=== PATIENT | male | born 1955 | race Caucasian/White ===

== ENCOUNTER 2020-04-11 09:45 | Outpatient (CLI) | payer OTHER, MEDICARE, SELFPAY ==
[2020-04-11 10:08] LABS: Hemoglobin A1C 11.2 % (<5.7)
[2020-04-11 10:43] LABS: Anion Gap 13.2 mmol/L (7-16); Blood Urea Nitrogen 17 mg/dL (7-18); Calcium 9.1 mg/dL (8.5-10.1); Carbon Dioxide 28 mmol/L (21-32); Chloride 96 mmol/L (98-108); Estimated Glomerular Filt Rate > 60; Glucose 261 mg/dL (70-99); Osmolality Calculated 286 mOsm/kg (285-295); Potassium 4.2 mmol/L (3.5-5.1); Sodium 133 mmol/L (136-145)
== END 2020-04-11 09:46 | disposition home or self-care (01) ==
PROVIDERS: PCP Internal Medicine; Visit Provider Internal Medicine
DX: E11.65 Type 2 diabetes mellitus with hyperglycemia (principal)
CPT/HCPCS: 36415; 80048; 83036

== ENCOUNTER 2020-07-18 08:15 | Outpatient (CLI) | payer OTHER, MEDICARE, SELFPAY ==
[2020-07-18 08:58] LABS: Add Urine Microscopic? YES; Appearance Urine Clear (Clear); Bilirubin Urine Negative (Negative); Blood Urine Negative (Negative); Color Urine Yellow (Yellow); Glucose Urine UA 3+ (Negative); Ketones Urine Trace (Negative); Leukocyte Esterase Ur Negative (Negative); Nitrate Urine Negative (Negative); Protein Urine Negative (Negative); Urobilinogen Urine 0.2 mg/dL (0.2-1.0); pH Urine 5.5 (5.0-8.0)
[2020-07-18 09:20] LABS: Hemoglobin A1C 11.6 % (<5.7)
[2020-07-18 09:27] LABS: Bacteria Urine None seen /hpf; RBC Urine 0-2 /hpf (0-2); Squamous Epithelial Cell Urine None seen /hpf (Few); WBC Urine 0-3 /hpf (0-3)
[2020-07-18 09:44] LABS: Creatinine Urine 47.59 mg/dL (40-278); MALB Creatinine Ratio 69.5 mg/g (0-30); Microalbumin Urine Random 33.1 mg/L
[2020-07-18 09:47] LABS: Alanine Aminotransferase 23 U/L (16-63); Albumin Level 3.9 g/dL (3.4-5.0); Alkaline Phosphatase 98 U/L (46-116); Anion Gap 10 mmol/L (8-16); Aspartate Amino Transferase 18 U/L (15-37); Bilirubin,Total 0.5 mg/dL (0.00-1.00); Blood Urea Nitrogen 16 mg/dL (7-18); Calcium 8.9 mg/dL (8.5-10.1); Carbon Dioxide 27 mmol/L (21-32); Chloride 98 mmol/L (98-108); Cholesterol 274 mg/dL (0-200); Creatine Kinase 33 U/L (39-308); Estimated Glomerular Filt Rate > 60; Glucose 394 mg/dL (70-99); HDL Direct 29 mg/dL (40-60); Osmolality Calculated 297 mOsm/kg (285-295); Potassium 4.5 mmol/L (3.5-5.1); Prostate Specific Antigen 1.2 ng/mL (< OR = 4.0); Sodium 135 mmol/L (136-145); Total Protein 6.9 g/dL (6.4-8.2)
[2020-07-18 09:48] LABS: LDL Cholesterol Calculated 98 mg/dL (<130)
[2020-07-18 09:50] LABS: Triglycerides 736 mg/dL (0-150)
[2020-07-18 10:05] LABS: LDL Cholesterol Direct 128 mg/dL (0-130)
== END 2020-07-18 08:16 | disposition home or self-care (01) ==
LOC: CHSLAB 08:21
PROVIDERS: PCP Internal Medicine; Visit Provider Internal Medicine
DX: E11.65 Type 2 diabetes mellitus with hyperglycemia (principal); I10 Essential (primary) hypertension; E78.2 Mixed hyperlipidemia; R97.20 Elevated prostate specific antigen [PSA]
CPT/HCPCS: 36415; 80053; 80061; 81001; 82043; 82550; 83036; 83721; 84153

== ENCOUNTER 2021-07-21 08:13 | Outpatient (CLI) | payer OTHER, MEDICARE, SELFPAY ==
[2021-07-21 08:39] LABS: Hemoglobin A1C 7.7 % (<5.7)
[2021-07-21 10:02] LABS: Alanine Aminotransferase 42 U/L (16-63); Albumin Level 4.3 g/dL (3.4-5.0); Alkaline Phosphatase 72 U/L (46-116); Anion Gap 11 mmol/L (8-16); Aspartate Amino Transferase 22 U/L (15-37); Bilirubin,Total 0.5 mg/dL (0.00-1.00); Blood Urea Nitrogen 17 mg/dL (7-18); Calcium 9.2 mg/dL (8.5-10.1); Carbon Dioxide 28 mmol/L (21-32); Chloride 101 mmol/L (98-108); Cholesterol 137 mg/dL (0-200); Estimated Glomerular Filt Rate > 60; Glucose 165 mg/dL (70-99); HDL Direct 37 mg/dL (40-60); LDL Cholesterol Calculated 68 mg/dL (<130); Osmolality Calculated 295 mOsm/kg (285-295); Potassium 4.6 mmol/L (3.5-5.1); Prostate Specific Antigen 2.1 ng/mL (< OR = 4.0); Sodium 140 mmol/L (136-145); Total Protein 7.1 g/dL (6.4-8.2); Triglycerides 158 mg/dL (0-150)
== END 2021-07-21 08:14 | disposition home or self-care (01) ==
PROVIDERS: PCP Internal Medicine; Visit Provider Internal Medicine
DX: E11.65 Type 2 diabetes mellitus with hyperglycemia (principal); I10 Essential (primary) hypertension; E78.2 Mixed hyperlipidemia; R97.20 Elevated prostate specific antigen [PSA]
CPT/HCPCS: 36415; 80053; 80061; 83036; 84153

== ENCOUNTER 2021-09-22 09:27 | Emergency (ER) | payer OTHER, MEDICARE, SELFPAY ==
--- NOTE | ~2021-09-22 | XR_ITS ---
EXAMINATION: XR chest 1V portable DATE: 09/22/2021 10:38 INDICATION: Cough and congestion. TECHNIQUE: A single frontal view of the chest was obtained. COMPARISON: Chest single view 10/15/2017, chest CT 10/15/2017 FINDINGS: The chest demonstrates clear lungs without pneumonia, pleural effusion, or pneumothorax. Th e heart size is normal. There is an old healed left rib fracture. IMPRESSION: 1. No acute cardiopulmonary disease. Reviewed, dictated and finalized at location A. AL VAULT MAKER
[2021-09-22 09:35] VITALS: BP 153/91; PULSE 90; RESP 20; TEMP 37; O2SAT 96
--- NOTE | 2021-09-22 10:02 | ED.URI ---
HPI - URI/Sore Throat General Chief Complaint: Upper Respiratory Infection Stated Complaint: SICK SENT BY DRS OFFICE Source: patient, family and RN notes reviewed Mode of arrival: ambulatory Limitations: no limitations History of Present Illness MD elicited complaint: cough and nasal congestion Onset (ago): week(s) (2) Consistency: intermittent Severity: moderate Description of mucous: yellow and green Able to tolerate fluids by mouth: Yes Associated symptoms: myalgias, nasal congestion and cough Treatments prior to arrival: none Review of Systems Review of Systems: All systems reviewed & are unremarkable except as noted in HPI and below PMFSH Past Medical History Medical History (Updated 09/22/21 @ 12:01 by Robe Lynch MD) BPH (benign prostatic hyperplasia) Hyperlipidemia Hypertension Type 2 diabetes mellitus Surgical History Surgical History (Updated 09/22/21 @ 11:13 by Robe Lynch MD) Femur fracture, left Fx tibia/fibula shaft-op H/O knee surgery Hx of tonsillectomy Left forearm fracture Social History Social History (Updated 09/22/21 @ 11:15 by Robe Lynch MD) Smoking status: Former smoker Alcohol use details: no current alcohol use Substance use: current Substance use type: marijuana Exam Const: General: healthy appearing, no acute distress and alert Nutritional Appearance: well nourished and obese centrally obese Orientation/consciousness: patient oriented x3 HENMT: Head: normal to inspection Ears: external ears normal Eyes: Conjunctivae: conjunctivae normal Pupils: Equal, round and reactive pupils present EOM: EOMs intact bilaterally Neck: Neck: normal visual inspection Resp: Effort & Inspection: normal respiratory effort Auscultation: rhonchi left upper Cardio: Rate: regular rate Rhythm: regular rhythm GI: GI Palp: Yes Soft to palpation, No Tenderness to palpation present (GI), No Guarding due to palpation present (GI) and No Rebound tenderness present Auscultation: normal bowel sounds Back/Spine/Pelvis: Cervical Spine: cervical ROM normal Thoracic/Lumbar Spine: thoraco-lumbar ROM normal Skin: General skin exam: normal color Rashes: no rashes Neuro: General: patient oriented x3, moves all extremities, no meningeal signs and no focal motor deficits Speech: normal speech Gait exam (Neuro): Normal gait present Extrem: General: normal to inspection and no clubbing, cyanosis or edema Psych: Appearance: grossly normal and well kempt Mental Status: mental status grossly normal Affect: normal affect Attitude: cooperative Thought content: Yes Normal thought content present Course Vital Signs Vital signs: Vital Signs Temperature 37.0 C 09/22/21 09:35 Pulse Rate 90 09/22/21 09:35 Respiratory Rate 20 09/22/21 09:35 Blood Pressure 153/91 H 09/22/21 09:35 Pulse Oximetry 96 09/22/21 09:35 Temperature 36.9 C 09/22/21 12:09 Pulse Rate 67 09/22/21 12:09 Respiratory Rate 20 09/22/21 12:09 Blood Pressure 152/74 H 09/22/21 12:09 Pulse Oximetry 97 09/22/21 12:09 MDM - URI/Sore Throat Lab Data Attestation: I reviewed the patient's lab results. Result diagrams: 09/22/21 10:29 09/22/21 10:29 Labs: Lab Results 09/22/21 09/22/21 09/22/21 Range/Units 10:00 10:00 10:29 WBC 13.3 H (4.8-10.8) K/mm3 RBC 5.39 (4.70-6.10) M/mm3 Hgb 14.4 (12.4-15.3) g/dL Hct 44.7 (37.0-46.0) % MCV 82.9 (78.0-102.0) fL MCH 26.7 L (27.0-31.0) pg MCHC 32.2 (32.0-36.0) g/dL RDW 14.9 H (11.6-14.4) % Plt Count 296 (150-420) K/mm3 MPV 9.3 (8.7-11.0) fl Immature Gran % (Auto) 0.8 H (0.0-0.0) % Neut % (Auto) 74.0 H (50.0-70.0) % Lymph % (Auto) 15.3 L (18.0-42.0) % Sequoyah % (Auto) 5.5 (2.0-11.0) % Eos % (Auto) 3.6 (1.0-6.0) % Baso % (Auto) 0.8 (0.0-1.0) % Lymph # (Auto) 2.03 (1.10-4.50) K/mm3 Sequoyah # (Auto) 0.73 (0.10-0.90) K/mm3 Eos # (Aut
[2021-09-22 10:23] LABS: Influenza Control Valid (Valid); SARS-CoV-2 Ag Negative (Negative)
[2021-09-22 10:38] LABS: Basophils Absolute Auto 0.11 K/mm3 (0.00-0.10); Basophils Percent Auto 0.8 % (0.0-1.0); Eosinophils Absolute Auto 0.48 K/mm3 (0.02-0.50); Eosinophils Percent Auto 3.6 % (1.0-6.0); Hematocrit 44.7 % (37.0-46.0); Hemoglobin 14.4 g/dL (12.4-15.3); Immature Granulocyte Absolute 0.11 K/mm3 (0.00-0.00); Immature Granulocyte Percent A 0.8 % (0.0-0.0); Lymphocytes Absolute Auto 2.03 K/mm3 (1.10-4.50); Lymphocytes Percent Auto 15.3 % (18.0-42.0); Mean Corpuscular HGB Conc 32.2 g/dL (32.0-36.0); Mean Corpuscular Hemoglobin 26.7 pg (27.0-31.0); Mean Corpuscular Volume 82.9 fL (78.0-102.0); Mean Platelet Volume 9.3 fl (8.7-11.0); Monocytes Absolute Auto 0.73 K/mm3 (0.10-0.90); Monocytes Percent Auto 5.5 % (2.0-11.0); Neutrophils Absolute Auto 9.8 K/mm3 (1.7-7.2); Platelet Count Result 296 K/mm3 (150-420); Red Blood Count 5.39 M/mm3 (4.70-6.10); Red Cell Distribution Width 14.9 % (11.6-14.4); White Blood Count 13.3 K/mm3 (4.8-10.8)
[2021-09-22 11:05] LABS: Alanine Aminotransferase 36 U/L (16-63); Alkaline Phosphatase 75 U/L (46-116); Anion Gap 8 mmol/L (8-16); Aspartate Amino Transferase 23 U/L (15-37); Bilirubin,Total 0.3 mg/dL (0.00-1.00); Blood Urea Nitrogen 15 mg/dL (7-18); Carbon Dioxide 29 mmol/L (21-32); Chloride 97 mmol/L (98-108); Estimated CRCL calculation 81 ml/min; Estimated Glomerular Filt Rate > 60; Ferritin 134 ng/mL (26-388); Glucose 170 mg/dL (70-99); Magnesium 1.9 mg/dL (1.8-2.4); Osmolality Calculated 282 mOsm/kg (285-295); Potassium 4.5 mmol/L (3.5-5.1); Sodium 134 mmol/L (136-145); Total Protein 7.7 g/dL (6.4-8.2)
[2021-09-22 11:06] LABS: CRP < 0.2 mg/dL (0.0-0.9)
[2021-09-22 11:14] LABS: Lactic Acid Reflex 1.5 mmol/L (0.4-2.0)
[2021-09-22 12:09] VITALS: BP 152/74; PULSE 67; RESP 20; TEMP 36.9; O2SAT 97
== END 2021-09-22 12:10 | disposition home or self-care (01) ==
PROVIDERS: Emergency Provider Emergency Medicine; PCP Internal Medicine
DX: J00 Acute nasopharyngitis [common cold] (principal); Z20.822 Contact with and (suspected) exposure to COVID-19; I10 Essential (primary) hypertension; E11.9 Type 2 diabetes mellitus without complications; E78.5 Hyperlipidemia, unspecified; N40.0 Benign prostatic hyperplasia without lower urinary tract symptoms; Z87.891 Personal history of nicotine dependence
CPT/HCPCS: 36415; 71045; 80053; 82728; 83605; 83735; 84145; 85025; 86140; 87426; 87804; 99282; 99283; C9803

== ENCOUNTER 2021-10-25 07:48 | Outpatient (CLI) | payer BC, MEDICARE, SELFPAY ==
[2021-10-25 08:23] LABS: Hemoglobin A1C 6.9 % (<5.7)
[2021-10-25 09:07] LABS: Anion Gap 8 mmol/L (8-16); Blood Urea Nitrogen 20 mg/dL (7-18); Calcium 8.9 mg/dL (8.5-10.1); Carbon Dioxide 29 mmol/L (21-32); Chloride 97 mmol/L (98-108); Estimated Glomerular Filt Rate > 60; Glucose 119 mg/dL (70-99); Osmolality Calculated 281 mOsm/kg (285-295); Potassium 4.3 mmol/L (3.5-5.1); Sodium 134 mmol/L (136-145)
== END 2021-10-25 07:49 | disposition home or self-care (01) ==
LOC: CHSLAB 07:54
PROVIDERS: PCP Internal Medicine; Visit Provider Internal Medicine
DX: E11.65 Type 2 diabetes mellitus with hyperglycemia (principal)
CPT/HCPCS: 36415; 80048; 83036

== ENCOUNTER 2022-02-17 07:22 | Outpatient (CLI) | payer BC, MEDICARE, SELFPAY ==
[2022-02-17 07:50] LABS: Add Urine Microscopic? NO; Appearance Urine Clear (Clear); Bilirubin Urine Negative (Negative); Blood Urine Negative (Negative); Color Urine Yellow (Yellow); Glucose Urine UA Negative (Negative); Ketones Urine Negative (Negative); Leukocyte Esterase Ur Negative (Negative); Nitrate Urine Negative (Negative); Protein Urine Negative (Negative); Specific Grav Ur 1.015 (1.010-1.020); Urobilinogen Urine 0.2 mg/dL (0.2-1.0)
[2022-02-17 07:57] LABS: Hemoglobin A1C 6.1 % (<5.7)
[2022-02-17 07:58] LABS: Creatinine Urine 114.02 mg/dL (40-278); MALB Creatinine Ratio 15.1 mg/g (0-30); Microalbumin Urine Random 17.3 mg/L
[2022-02-17 08:10] LABS: Alanine Aminotransferase 39 U/L (16-63); Albumin Level 3.9 g/dL (3.4-5.0); Alkaline Phosphatase 74 U/L (46-116); Anion Gap 6 mmol/L (8-16); Aspartate Amino Transferase 52 U/L (15-37); Bilirubin,Total 0.4 mg/dL (0.00-1.00); Blood Urea Nitrogen 17 mg/dL (7-18); Calcium 8.9 mg/dL (8.5-10.1); Carbon Dioxide 32 mmol/L (21-32); Chloride 102 mmol/L (98-108); Cholesterol 136 mg/dL (0-200); Estimated Glomerular Filt Rate > 60; Glucose 114 mg/dL (70-99); HDL Direct 33 mg/dL (40-60); LDL Cholesterol Calculated 53 mg/dL (<130); Osmolality Calculated 292 mOsm/kg (285-295); Potassium 4.2 mmol/L (3.5-5.1); Prostate Specific Antigen 1.2 ng/mL (< OR = 4.0); Sodium 140 mmol/L (136-145); Total Protein 7.6 g/dL (6.4-8.2); Triglycerides 249 mg/dL (0-150)
== END 2022-02-17 07:23 | disposition home or self-care (01) ==
LOC: CHSLAB 07:25
PROVIDERS: PCP Internal Medicine; Visit Provider Internal Medicine
DX: E11.65 Type 2 diabetes mellitus with hyperglycemia (principal); I10 Essential (primary) hypertension; E78.2 Mixed hyperlipidemia; R97.20 Elevated prostate specific antigen [PSA]
CPT/HCPCS: 36415; 80053; 80061; 81003; 82043; 83036; 84153

== ENCOUNTER 2022-04-09 16:44 | Outpatient (CLI) | payer BC, MEDICARE, SELFPAY ==
[2022-04-09 17:08] LABS: Basophils Absolute Auto 0.07 K/mm3 (0.00-0.10); Basophils Percent Auto 0.6 % (0.0-1.0); Eosinophils Absolute Auto 0.39 K/mm3 (0.02-0.50); Eosinophils Percent Auto 3.4 % (1.0-6.0); Hemoglobin 14.5 g/dL (12.4-15.3); Immature Granulocyte Absolute 0.06 K/mm3 (0.00-0.00); Immature Granulocyte Percent A 0.5 % (0.0-0.0); Lymphocytes Absolute Auto 2.22 K/mm3 (1.10-4.50); Lymphocytes Percent Auto 19.5 % (18.0-42.0); Mean Corpuscular HGB Conc 32.2 g/dL (32.0-36.0); Mean Corpuscular Hemoglobin 26.6 pg (27.0-31.0); Mean Corpuscular Volume 82.6 fL (78.0-102.0); Mean Platelet Volume 9.6 fl (8.7-11.0); Monocytes Percent Auto 6.2 % (2.0-11.0); Neutrophils Absolute Auto 7.9 K/mm3 (1.7-7.2); Neutrophils Percent Auto 69.8 % (50.0-70.0); Platelet Count Result 259 K/mm3 (150-420); Red Blood Count 5.45 M/mm3 (4.70-6.10); Red Cell Distribution Width 15.5 % (11.6-14.4); White Blood Count 11.4 K/mm3 (4.8-10.8)
[2022-04-09 17:46] LABS: Alanine Aminotransferase 33 U/L (16-63); Albumin Level 4.3 g/dL (3.4-5.0); Alkaline Phosphatase 80 U/L (46-116); Anion Gap 8 mmol/L (8-16); Aspartate Amino Transferase 24 U/L (15-37); Bilirubin,Total 0.4 mg/dL (0.00-1.00); Blood Urea Nitrogen 16 mg/dL (7-18); Calcium 9.2 mg/dL (8.5-10.1); Carbon Dioxide 29 mmol/L (21-32); Chloride 100 mmol/L (98-108); Estimated Glomerular Filt Rate > 60; Free T4 Free Thyroxine 1.07 ng/dL (0.76-1.46); Glucose 122 mg/dL (70-99); Osmolality Calculated 286 mOsm/kg (285-295); Potassium 4.3 mmol/L (3.5-5.1); Sodium 137 mmol/L (136-145); Thyroid Stimulating Hormone 2.25 uIU/mL (0.36-3.74); Total Protein 7.4 g/dL (6.4-8.2)
== END 2022-04-09 16:45 | disposition home or self-care (01) ==
LOC: CHSLAB 16:47
PROVIDERS: PCP Internal Medicine; Visit Provider Nurse Practitioner Family
DX: E11.65 Type 2 diabetes mellitus with hyperglycemia (principal); I10 Essential (primary) hypertension; N39.0 Urinary tract infection, site not specified
CPT/HCPCS: 36415; 80053; 84439; 84443; 85025

== ENCOUNTER 2022-07-26 07:26 | Outpatient (CLI) | payer BC, MEDICARE, SELFPAY ==
[2022-07-26 07:44] LABS: Basophils Absolute Auto 0.12 K/mm3 (0.00-0.10); Eosinophils Absolute Auto 0.83 K/mm3 (0.02-0.50); Hematocrit 42.3 % (37.0-46.0); Hemoglobin 12.9 g/dL (12.4-15.3); Immature Granulocyte Absolute 0.06 K/mm3 (0.00-0.00); Immature Granulocyte Percent A 0.5 % (0.0-0.0); Lymphocytes Absolute Auto 1.84 K/mm3 (1.10-4.50); Lymphocytes Percent Auto 15.6 % (18.0-42.0); Mean Corpuscular HGB Conc 30.5 g/dL (32.0-36.0); Mean Corpuscular Hemoglobin 25.2 pg (27.0-31.0); Mean Corpuscular Volume 82.8 fL (78.0-102.0); Monocytes Absolute Auto 0.73 K/mm3 (0.10-0.90); Monocytes Percent Auto 6.2 % (2.0-11.0); Neutrophils Absolute Auto 8.2 K/mm3 (1.7-7.2); Neutrophils Percent Auto 69.7 % (50.0-70.0); Platelet Count Result 300 K/mm3 (150-420); Red Blood Count 5.11 M/mm3 (4.70-6.10); Red Cell Distribution Width 16.8 % (11.6-14.4); White Blood Count 11.8 K/mm3 (4.8-10.8)
[2022-07-26 07:46] LABS: Add Urine Microscopic? NO; Appearance Urine Clear (Clear); Bilirubin Urine Negative (Negative); Blood Urine Negative (Negative); Color Urine Yellow (Yellow); Glucose Urine UA Negative (Negative); Ketones Urine Negative (Negative); Leukocyte Esterase Ur Negative (Negative); Nitrate Urine Negative (Negative); Protein Urine Negative (Negative); Urobilinogen Urine 0.2 mg/dL (0.2-1.0)
[2022-07-26 07:53] LABS: Hemoglobin A1C 6.4 % (<5.7)
[2022-07-26 08:22] LABS: Creatinine Urine 110.36 mg/dL (40-278); MALB Creatinine Ratio 19.8 mg/g (0-30); Microalbumin Urine Random 21.9 mg/L
[2022-07-26 08:44] LABS: Alanine Aminotransferase 28 U/L (16-63); Albumin Level 3.9 g/dL (3.4-5.0); Alkaline Phosphatase 76 U/L (46-116); Anion Gap 8 mmol/L (8-16); Aspartate Amino Transferase 19 U/L (15-37); Bilirubin,Total 0.4 mg/dL (0.00-1.00); Blood Urea Nitrogen 15 mg/dL (7-18); Carbon Dioxide 29 mmol/L (21-32); Chloride 101 mmol/L (98-108); Cholesterol 125 mg/dL (0-200); Creatine Kinase 50 U/L (39-308); Estimated Glomerular Filt Rate > 60; Glucose 172 mg/dL (70-99); HDL Direct 40 mg/dL (40-60); LDL Cholesterol Calculated 50 mg/dL (<130); Osmolality Calculated 290 mOsm/kg (285-295); Prostate Specific Antigen 1.6 ng/mL (< OR = 4.0); Sodium 138 mmol/L (136-145); Total Protein 7.3 g/dL (6.4-8.2); Triglycerides 175 mg/dL (0-150)
== END 2022-07-26 07:27 | disposition home or self-care (01) ==
LOC: CHSLAB 07:28
PROVIDERS: PCP Internal Medicine; Visit Provider Internal Medicine
DX: E11.65 Type 2 diabetes mellitus with hyperglycemia (principal); E78.2 Mixed hyperlipidemia; I10 Essential (primary) hypertension; R97.20 Elevated prostate specific antigen [PSA]
CPT/HCPCS: 36415; 80053; 80061; 81003; 82043; 82550; 83036; 84153; 85025

== ENCOUNTER 2022-11-12 07:04 | Outpatient (CLI) | payer BC, MEDICARE, SELFPAY ==
[2022-11-12 07:19] LABS: Basophils Absolute Auto 0.07 K/mm3 (0.00-0.10); Basophils Percent Auto 0.7 % (0.0-1.0); Eosinophils Absolute Auto 0.58 K/mm3 (0.02-0.50); Hemoglobin 13.6 g/dL (12.4-15.3); Immature Granulocyte Absolute 0.04 K/mm3 (0.00-0.00); Immature Granulocyte Percent A 0.4 % (0.0-0.0); Lymphocytes Absolute Auto 1.95 K/mm3 (1.10-4.50); Lymphocytes Percent Auto 20.2 % (18.0-42.0); Mean Corpuscular HGB Conc 30.2 g/dL (32.0-36.0); Mean Corpuscular Hemoglobin 24.4 pg (27.0-31.0); Mean Corpuscular Volume 80.6 fL (78.0-102.0); Mean Platelet Volume 9.4 fl (8.7-11.0); Monocytes Absolute Auto 0.69 K/mm3 (0.10-0.90); Monocytes Percent Auto 7.2 % (2.0-11.0); Neutrophils Absolute Auto 6.3 K/mm3 (1.7-7.2); Neutrophils Percent Auto 65.5 % (50.0-70.0); Platelet Count Result 262 K/mm3 (150-420); Red Blood Count 5.58 M/mm3 (4.70-6.10); Red Cell Distribution Width 17.5 % (11.6-14.4); White Blood Count 9.6 K/mm3 (4.8-10.8)
[2022-11-12 07:21] LABS: Appearance Urine Clear (Clear); Bilirubin Urine Negative (Negative); Blood Urine Negative (Negative); Glucose Urine UA Negative (Negative); Ketones Urine Trace (Negative); Leukocyte Esterase Ur Negative LEU/UL (Negative); Nitrate Urine Negative (Negative); Protein Urine Negative (Negative); Specific Grav Ur 1.025 (1.010-1.020); Urobilinogen Urine 0.2 mg/dL (0.2-1.0); pH Urine 5.5 (5.0-8.0)
[2022-11-12 07:27] LABS: Add Urine Microscopic? YES; Color Urine Dark Yellow (Yellow); RBC Urine None seen /hpf (0-2); WBC Urine None seen /hpf (0-3)
[2022-11-12 07:28] LABS: Bacteria Urine Trace /hpf
[2022-11-12 07:36] LABS: Hemoglobin A1C 6.3 % (<5.7)
[2022-11-12 08:15] LABS: Alanine Aminotransferase 31 U/L (16-63); Alkaline Phosphatase 84 U/L (46-116); Anion Gap 7 mmol/L (8-16); Aspartate Amino Transferase 35 U/L (15-37); Bilirubin,Total 0.4 mg/dL (0.00-1.00); Blood Urea Nitrogen 20 mg/dL (7-18); Calcium 8.7 mg/dL (8.5-10.1); Carbon Dioxide 33 mmol/L (21-32); Chloride 101 mmol/L (98-108); Cholesterol 142 mg/dL (0-200); Estimated Glomerular Filt Rate > 60; Free T3 2.92 pg/mL (2.18-3.98); Free T4 Free Thyroxine 0.98 ng/dL (0.76-1.46); Glucose 159 mg/dL (70-99); HDL Direct 39 mg/dL (40-60); LDL Cholesterol Calculated 66 mg/dL (<130); Osmolality Calculated 297 mOsm/kg (285-295); Prostate Specific Antigen 1.3 ng/mL (< OR = 4.0); Sodium 141 mmol/L (136-145); Thyroid Stimulating Hormone 2.83 uIU/mL (0.36-3.74); Total Protein 7.4 g/dL (6.4-8.2); Triglycerides 184 mg/dL (0-150)
== END 2022-11-12 07:05 | disposition home or self-care (01) ==
LOC: CHSLAB 07:06
PROVIDERS: PCP Internal Medicine; Visit Provider Internal Medicine
DX: E11.65 Type 2 diabetes mellitus with hyperglycemia (principal); E78.2 Mixed hyperlipidemia; I10 Essential (primary) hypertension; R97.20 Elevated prostate specific antigen [PSA]
CPT/HCPCS: 36415; 80053; 80061; 81001; 83036; 84153; 84439; 84443; 84481; 85025

== ENCOUNTER 2023-05-17 07:27 | Outpatient (CLI) | payer BC, MEDICARE, SELFPAY ==
[2023-05-17 07:44] LABS: Basophils Absolute Auto 0.06 K/mm3 (0.00-0.10); Basophils Percent Auto 0.5 % (0.0-1.0); Eosinophils Absolute Auto 0.63 K/mm3 (0.02-0.50); Eosinophils Percent Auto 5.4 % (1.0-6.0); Hematocrit 41.8 % (37.0-46.0); Hemoglobin 13.5 g/dL (12.4-15.3); Immature Granulocyte Absolute 0.06 K/mm3 (0.00-0.00); Immature Granulocyte Percent A 0.5 % (0.0-0.0); Lymphocytes Absolute Auto 2.03 K/mm3 (1.10-4.50); Lymphocytes Percent Auto 17.4 % (18.0-42.0); Mean Corpuscular HGB Conc 32.3 g/dL (32.0-36.0); Mean Corpuscular Hemoglobin 27.1 pg (27.0-31.0); Mean Corpuscular Volume 83.8 fL (78.0-102.0); Monocytes Absolute Auto 0.69 K/mm3 (0.10-0.90); Monocytes Percent Auto 5.9 % (2.0-11.0); Neutrophils Absolute Auto 8.2 K/mm3 (1.7-7.2); Neutrophils Percent Auto 70.3 % (50.0-70.0); Platelet Count Result 224 K/mm3 (150-420); Red Blood Count 4.99 M/mm3 (4.70-6.10); Red Cell Distribution Width 15.6 % (11.6-14.4); White Blood Count 11.7 K/mm3 (4.8-10.8)
[2023-05-17 07:53] LABS: Hemoglobin A1C 6.6 % (<5.7)
[2023-05-17 08:08] LABS: Appearance Urine Clear (Clear); Bilirubin Urine Negative (Negative); Blood Urine Negative (Negative); Glucose Urine UA Negative (Negative); Ketones Urine Negative (Negative); Leukocyte Esterase Ur Negative (Negative); Nitrate Urine Negative (Negative); Protein Urine Negative (Negative); Specific Grav Ur >= 1.030 (1.010-1.020); Urobilinogen Urine 0.2 mg/dL (0.2-1.0)
[2023-05-17 08:15] LABS: Add Urine Microscopic? NO; Color Urine Dark Orange (Yellow)
[2023-05-17 08:19] LABS: Creatinine Urine 215.75 mg/dL (40-278); MALB Creatinine Ratio 17.6 mg/g (0-30); Microalbumin Urine Random 38.1 mg/L
[2023-05-17 08:38] LABS: Alanine Aminotransferase 38 U/L (16-63); Albumin Level 3.8 g/dL (3.4-5.0); Alkaline Phosphatase 82 U/L (46-116); Anion Gap 11 mmol/L (8-16); Aspartate Amino Transferase 23 U/L (15-37); Bilirubin,Total 0.4 mg/dL (0.00-1.00); Blood Urea Nitrogen 24 mg/dL (7-18); Calcium 8.9 mg/dL (8.5-10.1); Carbon Dioxide 27 mmol/L (21-32); Chloride 103 mmol/L (98-108); Cholesterol 121 mg/dL (0-200); Creatine Kinase 56 U/L (39-308); Estimated Glomerular Filt Rate > 60; Glucose 163 mg/dL (70-99); HDL Direct 32 mg/dL (40-60); LDL Cholesterol Calculated 29 mg/dL (<130); Osmolality Calculated 300 mOsm/kg (285-295); Potassium 4.7 mmol/L (3.5-5.1); Prostate Specific Antigen 1.1 ng/mL (< OR = 4.0); Sodium 141 mmol/L (136-145); Triglycerides 298 mg/dL (0-150)
== END 2023-05-17 07:28 | disposition home or self-care (01) ==
LOC: CHSLAB 07:30
PROVIDERS: PCP Internal Medicine; Visit Provider Internal Medicine
DX: E11.65 Type 2 diabetes mellitus with hyperglycemia (principal); I10 Essential (primary) hypertension; E78.2 Mixed hyperlipidemia; R97.20 Elevated prostate specific antigen [PSA]
CPT/HCPCS: 36415; 80053; 80061; 81003; 82043; 82550; 83036; 84153; 85025; G0103

== ENCOUNTER 2023-07-08 08:20 | Outpatient (CLI) | payer BC, MEDICARE, SELFPAY | END 2023-07-08 08:21 | disposition home or self-care (01) | PROVIDERS: PCP Internal Medicine; Visit Provider Internal Medicine | DX: R94.31 Abnormal electrocardiogram [ECG] [EKG] (principal) | CPT/HCPCS: 99199 ==

== ENCOUNTER 2023-07-15 08:56 | Outpatient (CLI) | payer BC, MEDICARE, SELFPAY ==
--- NOTE | 2023-07-15 09:04 | EST_ITS ---
Patient Info Name: Tobi Horvath Age: 68 years : 1955 Gender: Male Ht: 69 in Wt: 257 lbs BSA: 2.43 m2 HR: 63 bpm BP: 115 / 46 mmHg Heart Rhythm: Sinus Arrhythmia Technical Quality: Good Exam Date: 07/15/2023 10:25 AM Exam Location: [facility] Patient Status: Outpatient Admit Date: 07/15/2023 Staff Ordering Physician: Radha Anderson MD Attending Provider: Radha Anderson MD Exam Type: CA stress anat w NM Study Info A regadenoson stress test was performed. History/Risk Factors Hypertension: Yes Dyslipidemia: Yes Peripheral Arterial Disease (PAD): Yes Diabetes Mellitus: Type II Summary 1. 1. Negative lexiscan stress test for ischemic ST changes by ECG criteria. 2. 2. Stable hemodynamics throughout the test. 3. 3. Nuclear scan to follow and will be reported separately. Please correlate with it. Protocol: LEXISCAN Stress ECG Details Stage: REST Duration (min): 2 min : 59 sec HR (bpm): 60 SBP (mmHg): 115 DBP (mmHg): 46 Stage: REST Duration (min): 6 min : 32 sec HR (bpm): 48 SBP (mmHg): 115 DBP (mmHg): 46 Stage: STAGE 1 Duration (min): 0 min : 20 sec HR (bpm): 47 SBP (mmHg): 115 DBP (mmHg): 46 Stage: RECOVERY Duration (min): 0 min : 39 sec HR (bpm): 46 SBP (mmHg): 115 DBP (mmHg): 46 Stage: RECOVERY Duration (min): 1 min : 39 sec HR (bpm): 66 SBP (mmHg): 115 DBP (mmHg): 46 Stage: RECOVERY Duration (min): 2 min : 39 sec HR (bpm): 59 SBP (mmHg): 113 DBP (mmHg): 57 Stage: RECOVERY Duration (min): 3 min : 39 sec HR (bpm): 64 SBP (mmHg): 110 DBP (mmHg): 57 Stage: RECOVERY Duration (min): 4 min : 39 sec HR (bpm): 58 SBP (mmHg): 110 DBP (mmHg): 57 Stage: RECOVERY Duration (min): 4 min : 44 sec HR (bpm): 56 SBP (mmHg): 108 DBP (mmHg): 48 Rest HR: 48 bpm Peak HR: 70 bpm Rest Sys BP: 115 mmHg Peak Sys BP: 131 mmHg Max Pred HR: 150 bpm % Max Pred HR: 47 % Target HR: 128 bpm Max RPP: 9,170 bpm*mmHg Termination Reason: Completed Protocol Cardiac Symptoms: None Total Time: 0 min : 20 sec Rest Frank BP: 46 mmHg Peak Frank BP: 51 mmHg Total Dose: 0.4 mg Resting ECG Sinus bradycardia, RBBB, LAFB. Stress ECG No abnormal ST/T wave changes. Arrhythmias No arrhythmias were observed during the examination. Report Signatures
--- NOTE | 2023-07-15 16:59 | WPDCARIOSTRE ---
Nuclear Stress Test INDICATIONS Indications: Abnormal EKG PROCEDURE Procedure Performed: Myocardial Perf Spect-Multi Procedure: Patient underwent a lexiscan stress test and immediately was injected with 30 mCi of cardiolyte. Multiple tomographic images were obtained. These are of good quality. There is evidence of a moderate size and moderate severity inferoapical and apical septal perfusion defects with stress imaging. A separate resting images were obtained after patient was injected with 9.6 mCi of cardiolyte. Multiple tomographic images were obtained. These are of good quality. There is evidence of a moderate size and moderate severity inferoapical and apical septal perfusion defects with rest imaging. CONCLUSION Conclusion: 1. Myocardial perfusion imaging demonstrating a fixed inferoapical and apical septal perfusion defects suggestive of attenuation artifacts. 2. No evidence of reversible ischemia. 3. Left ventriculogram demonstrates normal measured ejection fraction of 52% with no wall motion abnormalities. 4. TID score 1.01 is normal.
== END 2023-07-15 08:57 | disposition home or self-care (01) ==
LOC: CHSIMG 08:59
PROVIDERS: PCP Internal Medicine; Visit Provider Internal Medicine
DX: R94.31 Abnormal electrocardiogram [ECG] [EKG] (principal)
CPT/HCPCS: 78452; 93017; A9502; J2785

== ENCOUNTER 2025-01-20 07:21 | Outpatient (CLI) | payer MEDICARE, SELFPAY ==
--- OUTSIDE RECORDS SUMMARY | 2025-01-20 07:26 | XMS_ITS | Clinical Summary ---
Author Organization [facility] Address [address] [place] [place] [address] Care Team Providers Care Counselor At Law Name Role Phone Johnnie Anderson MD Primary Care Provider [phone] Source Comments [facility],non-owned Affiliates and Associated Physician Practices is [facility] consisting of ambulatory clinics and hospital sitesin [place], [place], [place] and [place]. This disclosure is being madepursuant to the Care Everywhere program and may not contain all information available regarding this patient. Last updated 18.[facility] Allergies Active Allergy Reactions Criticality Noted Date Comments Procaine 01/22/2012 tongue swelled Medications * Be aware that medications may not be up to date on this document. Alwaysverify current medications with the patient. Medication Sig Dispensed Refills Start Date End Date Status lisinopril-hydrochlo rothiazide (PRINZIDE; ZESTORETIC) 10-12.5 MG tablet Take 1 Tab by mouth once daily. Instructed to take a.m. Of surgery with sip of water Active ALPRAZolam (XANAX) 0.25 MG tablet Take 0.25 mg by mouth 3 times daily as needed. Active cyclobenzaprine (FLEXERIL) 10 MG tablet Take 10 mg by mouth 3 times daily as needed. Active cilostazol (PLETAL) 50 MG TABS tablet Take 50 mg by mouth 2 times daily. Active glimepiride (AMARYL) 1 MG tablet Take 1 mg by mouth daily with breakfast. Active naproxen sodium (ALEVE) 220 MG tablet Take 220 mg by mouth once daily. Active hydrocodone-acetamin ophen (NORCO) 5-325 MG tablet Take 1 Tab by mouth every 4 hours as needed for Pain. 30 Tab 0 01/24/2012 Active clopidogrel (PLAVIX) 75 MG tablet Take 1 Tab by mouth once daily. 30 Tab 5 01/24/2012 Active Social History Tobacco Use Types Packs/Day Years Used Date Smoking Tobacco: Former Smokeless Tobacco: Never Alcohol Use Standard Drinks/Week Comments Yes 0 (1 standard drink = 0.6 oz pur e alcohol) Sex and Gender Information Value Date Recorded Sex Assigned at Not on file Gender Identity Not on file Sexual Orientation Not on file Last Filed Vital Signs Vital Sign Reading Time Taken Comments Blood Pressure 138/89 01/24/2012 4:01 AM CDT Pulse 77 01/24/2012 4:01 AM CDT Temperature 36.7 C (98 F) 01/24/2012 4:01 AM CDT Respiratory Rate 18 01/24/2012 4:0 1 AM CDT Oxygen Saturation 91% 01/24/2012 4:01 AM CDT Inhaled Oxygen Concentration - - Weight 111.1 kg (244 lb 14.9 oz) 01/23/2012 7:06 AM CDT Height 177.8 cm (5' 10 ) 01/23/2012 7:06 AM CDT Body Mass Index 35.14 01/23/2012 7:06 AM CDT Plan of Treatment Health Maintenance Due Date Last Done Comments COLOGUARD (AGES 45-75) - COL ON CA SCREENING 1955 COLON MONITORING 1955 COLONOSCOPY - COLON CA SCREENING 1955 CT COLONOGRAPHY - COLON CA SCREENING 1955 Colorectal Cancer Screening 1955 FIT - COLON CA SCREENING 1955 FLEX SIG - COLON CA SCREENING 1955 LIPID TESTING 1955 HEPATITIS C SCREENING 01/13/1971 DTAP/TDAP/TD VACCINES (1 - Tdap) 01/18/1972 PNEUMOCOCCAL VACCINE 50+ (1 of 1 - PCV) 2003 ZOSTER VACCINE (1 of 2) 2003 AAA SCREENING 2018 COVID-19 VACCINE ( - 2023-2 5 season) 2024 DEPRESSION SCREENING 10/14/2024 INFLUENZA VACCINE (Season Ended) 2025 Respiratory Syncytial Virus (RSV) Vaccine Pt: or over 60 yrs (1 - 1-dose 75+ series) 01/18/2028 HEPATITIS B VACCINE Aged Out No longe r eligible based on patient's age to complete this topic HIB VACCINE Aged Out No longer eligi ble based on patient's age to complete this topic HPV VACCINE Aged Out No longer eligi ble based on patient's age to complete this topic MENINGOCOCCAL (Group B) VACC INE SHARED DECISION-MAKING Aged Out No longer eligibl e based on patient's age to complete this topic MENINGOCOCCAL GROUPS A/C/Y/W VACCINE Aged Out No longer eligible b ased on patient's age to complete this topic Advance Directives * FULL RESUSCITATION (Latest Code Status on File) Date Activated Date Inactivated Comments 01/23/2012 11:27 AM 01/24/2012 8:15 PM Care Teams Counselor At Law Relationship Specialty Start Date End Date Johnnie Anderson MD [address] [place] [address] PCP - General 01/10/12
[2025-01-20 07:52] LABS: Add Urine Microscopic? YES; Appearance Urine Clear (Clear); Basophils Absolute Auto 0.05 K/mm3 (0.00-0.10); Basophils Percent Auto 0.6 % (0.0-1.0); Bilirubin Urine Negative (Negative); Blood Urine Negative (Negative); Color Urine Light Yellow (Yellow); Eosinophils Absolute Auto 0.31 K/mm3 (0.02-0.50); Glucose Urine UA Negative (Negative); Hematocrit 44.3 % (37.0-46.0); Hemoglobin 13.6 g/dL (12.4-15.3); Immature Granulocyte Absolute 0.03 K/mm3 (0.00-0.00); Immature Granulocyte Percent A 0.4 % (0.0-0.0); Ketones Urine Negative (Negative); Leukocyte Esterase Ur Negative (Negative); Lymphocytes Percent Auto 19.4 % (18.0-42.0); Mean Corpuscular HGB Conc 30.7 g/dL (32-36); Mean Corpuscular Hemoglobin 25.9 pg (27.0-31.0); Mean Corpuscular Volume 84.4 fL (78.0-102.0); Mean Platelet Volume 9.2 fl (8.7-11.0); Monocytes Absolute Auto 0.53 K/mm3 (0.10-0.90); Monocytes Percent Auto 6.8 % (2.0-11.0); Neutrophils Absolute Auto 5.33 K/mm3 (1.70-7.20); Neutrophils Percent Auto 68.8 % (50.0-70.0); Nitrate Urine Negative (Negative); Platelet Count Result 191 K/mm3 (150-420); Protein Urine Trace (Negative); Red Blood Count 5.25 M/mm3 (4.70-6.10); Red Cell Distribution Width 15.6 % (11.6-14.4); Specific Grav Ur 1.015 (1.010-1.020); Urobilinogen Urine 0.2 mg/dL (0.2-1.0); White Blood Count 7.8 K/mm3 (4.8-10.8)
[2025-01-20 08:00] LABS: Bacteria Urine None Seen /hpf; Mucus Urine None seen /lpf; RBC Urine None seen /hpf (0-2); Squamous Epithelial Cell Urine Rare /hpf (Few); WBC Urine None seen /hpf (0-3)
[2025-01-20 09:17] LABS: Creatinine Urine 61.49 mg/dL (40-278)
[2025-01-20 09:23] LABS: Alanine Aminotransferase 20 U/L (16-63); Albumin Level 4.1 g/dL (3.4-5.0); Alkaline Phosphatase 88 U/L (46-116); Anion Gap 8 mmol/L (4-12); Aspartate Amino Transferase 14 U/L (15-37); Bilirubin,Total 0.4 mg/dL (0.00-1.00); Blood Urea Nitrogen 17 mg/dL (7-18); Carbon Dioxide 29 mmol/L (21-32); Chloride 103 mmol/L (98-108); Cholesterol 149 mg/dL (0-200); Creatine Kinase 47 U/L (39-308); Estimated Glomerular Filt Rate > 60; Ferritin 76 ng/mL (26-388); Free T4 Free Thyroxine 1.13 ng/dL (0.76-1.46); Glucose 157 mg/dL (70-99); HDL Direct 49 mg/dL (40-60); Iron 51 ug/dL (65-175); LDL Cholesterol Calculated 68 mg/dL (<130); MALB Creatinine Ratio 291.7 mg/g (0-30); Microalbumin Urine Random 179.4 mg/L; Osmolality Calculated 294 mOsm/kg (285-295); Potassium 4.7 mmol/L (3.5-5.1); Prostate Specific Antigen 1.3 ng/mL (< OR = 4.0); Sodium 140 mmol/L (136-145); Thyroid Stimulating Hormone 1.68 uIU/mL (0.36-3.74); Total Protein 7.4 g/dL (6.4-8.2); Triglycerides 161 mg/dL (0-150); Vitamin B12 558 pg/mL (193-986)
== END 2025-01-20 07:22 | disposition home or self-care (01) ==
LOC: CHSLAB 07:23
PROVIDERS: PCP Internal Medicine; Visit Provider Internal Medicine
DX: R97.20 Elevated prostate specific antigen [PSA] (principal); I10 Essential (primary) hypertension; G62.9 Polyneuropathy, unspecified; E11.65 Type 2 diabetes mellitus with hyperglycemia; D64.9 Anemia, unspecified; E78.2 Mixed hyperlipidemia
CPT/HCPCS: 36415; 80053; 80061; 81001; 82043; 82550; 82607; 82728; 83036; 83540; 84153; 84439; 84443; 84481; 85025

== ENCOUNTER 2025-07-12 10:49 | Outpatient (CLI) | payer MEDICARE, SELFPAY ==
[2025-07-12 11:07] LABS: Appearance Urine Clear (Clear); Glucose Urine UA Negative (Negative); Hematocrit 42.2 % (37.0-46.0); Hemoglobin 13.0 g/dL (12.4-15.3); Leukocyte Esterase Ur Negative (Negative); Mean Corpuscular HGB Conc 30.8 g/dL (32-36); Mean Corpuscular Hemoglobin 26.1 pg (27.0-31.0); Mean Corpuscular Volume 84.7 fL (78.0-102.0); Nitrate Urine Negative (Negative); Platelet Count Result 231 K/mm3 (150-420); Red Blood Count 4.98 M/mm3 (4.70-6.10); Specific Grav Ur >= 1.030 (1.010-1.020); White Blood Count 10.2 K/mm3 (4.8-10.8)
[2025-07-12 11:13] LABS: Add Urine Microscopic? YES
[2025-07-12 11:25] LABS: Alanine Aminotransferase 22 U/L (6-50); Albumin Level 4.4 g/dL (3.5-5.1); Alkaline Phosphatase 72 U/L (38-126); Anion Gap 4 mmol/L (4-12); Aspartate Amino Transferase 29 U/L (17-59); Bilirubin,Total 0.5 mg/dL (0.2-1.3); Blood Urea Nitrogen 25 mg/dL (9-20); Calcium 9.7 mg/dL (8.4-10.2); Carbon Dioxide 28 mmol/L (22-30); Chloride 103 mmol/L (98-107); Cholesterol 113 mg/dL (0-200); Creatine Kinase 51 U/L (55-170); Estimated Glomerular Filt Rate > 60; Glucose 183 mg/dL (65-110); HDL Direct 39 mg/dL; Iron 66 ug/dL (49-181); Osmolality Calculated 289 mOsm/kg (285-295); Potassium 5.4 mmol/L (3.4-5.0); Sodium 135 mmol/L (137-145); Total Protein 7.9 g/dL (6.3-8.2); Triglycerides 164 mg/dL (<150)
[2025-07-12 11:30] LABS: Hemoglobin A1C 6.5 % (<5.7)
--- OUTSIDE RECORDS SUMMARY | 2025-07-12 11:34 | XMS_ITS | Clinical Summary ---
Author Organization [facility] Address [address] [place] [address] Care Team Providers Care Boom Storage Name Role Phone Johnnie Anderson MD Primary Care Provider [phone] Source Comments [facility],non-owned Affiliates and Associated Physician Practices is [facility] consisting of ambulatory clinics and hospital sitesin [place], [place], [place] and [place]. This disclosure is being madepursuant to the Care Everywhere program and may not contain all information available regarding this patient. Last updated 18.[facility] Allergies Active Allergy Reactions Criticality Noted Date Comments Procaine 01/22/2012 tongue swelled Medications * Be aware that medications may not be up to date on this document. Alwaysverify current medications with the patient. lisinopril-hydr ochlorothiazide (PRINZIDE; ZESTORETIC) 10-12.5 MG tablet Take 1 [...] 220 mg by mouth once daily. Active hydrocodone-dagoberto taminophen (NORCO) 5-325 MG tablet Take 1 Tab by mouth every 4 hours as needed for Pain. 30 Tab 0 2 Active clopidogrel (PLAVIX) 75 MG tablet Take 1 Tab by mouth once daily. 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 Gender Identity Not on file Sexual Orientation Not on file Last Filed Vital Signs Vital Sign Reading Time Taken Comments Blood Pressure 138/89 01/24/2012 4:01 AM CDT Pulse 77 01/24/2012 4:01 AM CDT Temperature 36.7 C (98 F) 01/24/2012 4:01 AM CDT Respiratory Rate 18 01/24/2012 4:01 AM CDT Oxygen Saturation 91% 01/24/2012 4:01 AM CDT Inhaled Oxygen Concentration - - Weight 111.1 kg (244 lb 14.9 oz) 01/23/2012 7:06 AM CDT Height 177.8 cm (5' 10) 01/23/2012 7:06 AM CDT Body Mass Index [...] (1 of 2) 2003 AAA SCREENING 2018 DEPRESSION SCREENING 10/14/2024 COVID-19 VACCINE (1 - 2023-2 5 season) 2025 INFLUENZA VACCINE (#1) 2025 Respiratory Syncytial Virus (RSV) Vaccine Pt: [...] 11:27 AM 01/24/2012 8:15 PM Care Teams [employer] Relationship Specialty Start Date End Date Johnnie Anderson MD [address] [place] [address] PCP - General 01/10/12
[2025-07-12 11:41] LABS: Free T4 Free Thyroxine 1.19 ng/dL (0.78-2.19)
[2025-07-12 11:55] LABS: Thyroid Stimulating Hormone 1.370 uIU/mL (0.465-4.680)
[2025-07-12 11:59] LABS: Ferritin 41.80 ng/mL (11.1-264)
[2025-07-12 12:14] LABS: MALB Creatinine Ratio 109.2 mg/g (0-30)
== END 2025-07-12 10:50 | disposition home or self-care (01) ==
LOC: CHSLAB 10:51
PROVIDERS: PCP Internal Medicine; Visit Provider Internal Medicine
DX: I10 Essential (primary) hypertension (principal); E11.9 Type 2 diabetes mellitus without complications; E78.2 Mixed hyperlipidemia; G62.9 Polyneuropathy, unspecified; D64.9 Anemia, unspecified
CPT/HCPCS: 36415; 80053; 80061; 81001; 82043; 82550; 82728; 83036; 83540; 84439; 84443; 85027

== ENCOUNTER 2025-08-30 12:56 | Outpatient (CLI) | payer MEDICARE, SELFPAY ==
--- NOTE | ~2025-08-30 | US_ITS ---
EXAMINATION: US carotid duplex BI DATE: 08/30/2025 13:26 INDICATION: Chronic neck pain. Stroke. TECHNIQUE: Grayscale, color Doppler, and pulsed Doppler images of the cervical carotid arteries were obtained. The degree of vessel stenosis is placed in one of the following categories: normal, <50%, 50-69%, >=70% but less than near- occlusion, near-occlusion, or total occlusion. Note that percent stenosis relative to normal distal artery lumen diameter is indirectly measured from velocity measurements as described by Stefano, et al. Radiology 2003; 229:340-346. COMPARISON: None. FINDINGS: RIGHT: The right common carotid artery (CCA) peak systolic velocity (PSV) is 71 cm/s. The right internal carotid artery (ICA) PSV is 160 cm/s. The right ICA end- diastolic velocity (EDV) is 22 cm/s. The right ICA/CCA PSV ratio is 1.8. Grayscale and color Doppler images yield an estimate of <50% diameter reduction from plaque in the ICA. The external carotid artery (ECA) PSV is 107 cm/s. There is antegrade flow in the right vertebral artery. LEFT: The left CCA PSV is 89 cm/s. The left ICA PSV is 72 cm/s. The left ICA EDV is 12 cm/s. The left ICA/CCA PSV ratio is 0.8. Grayscale and color Doppler images yield an estimate of <50% diameter reduction from plaque in the ICA. The ECA PSV is 102 cm/s. There is antegrade flow in the left vertebral artery. IMPRESSION: 1. <50% stenosis in the right internal carotid artery. 2. <50% stenosis in the left internal carotid artery. Reviewed, dictated and finalized at location A. OR SOFTWARE DEVELOPER
== END 2025-08-30 12:57 | disposition home or self-care (01) ==
LOC: CHSIMG 12:56
PROVIDERS: PCP Internal Medicine; Visit Provider Internal Medicine
DX: M54.2 Cervicalgia (principal); I63.9 Cerebral infarction, unspecified; I65.23 Occlusion and stenosis of bilateral carotid arteries
CPT/HCPCS: 93880

== ENCOUNTER 2025-09-18 08:32 | Outpatient (CLI) | payer MEDICARE, SELFPAY ==
--- NOTE | ~2025-09-18 | MR_ITS ---
EXAMINATION: MR cervical spine wo con DATE: 09/18/2025 09:50 INDICATION: Neck pain TECHNIQUE: Magnetic resonance imaging (MRI) of the cervical spine was performed without intravenous contrast. Sequences included sagittal T2-weighted FSE, sagittal T2-weighted FS FSE, sagittal T1-weighted FSE, axial MERGE, and axial T2-weighted FSE. COMPARISON: None FINDINGS: Degenerative changes present throughout the cervical spine involving disc spaces uncovertebral joints and pedicles. Mild multilevel spondylolisthesis is noted. Approximately 2 mm anterolisthesis present C4-C5, and C5-C6. Bony 2 mm anterolisthesis C6 on C7. No acute or aggressive bony or soft tissue process seen. No discrete medullary cord lesions or gross myelopathic changes. Incidentally noted within the visualized intracranial contents, mild patchy areas of hyperintense T2-weighted changes in the pontine portion of the brainstem. Level specific findings as follows: C2-3: Moderate degenerative disc changes with no spinal canal stenosis or discrete disc protrusion. Mild bilateral neural foraminal narrowing. C3-4: More severe posterior spondylosis and disc bulging but no spinal canal stenosis or discrete disc protrusion. Moderately severe bilateral neural foraminal narrowing, left worse than right. C4-5: Moderate to severe posterior spondylosis, with borderline spinal canal stenosis. The AP diameter of the spinal canal is approximately 8.1 cm. No discrete disc protrusion. Moderately severe bilateral neural foraminal narrowing. C5-6: Moderately severe posterior spondylosis with no discrete disc protrusion or spinal canal stenosis. Moderately severe bilateral neural foraminal narrowing. C6-7: Moderately severe degenerative disc changes and degenerative changes of the posterior elements with moderate to severe right and moderate left-sided neural foraminal narrowing. No spinal canal stenosis or discrete disc protrusion. C7-T1: Mild degenerative changes. IMPRESSION: 1. Multilevel degenerative changes with level specific findings as detailed above. 2. Incidental note of hyperintense T2-weighted changes in the pontine portion of the brainstem. Reviewed, dictated and finalized at location A. O FOLDER GLUER OPERATOR IMPRESSION: 1. Multilevel degenerative changes with level specific findings as detailed abo ve. 2. Incidental note of hyperintense T2-weighted changes in the pontine portion o f the brainstem.
--- NOTE | ~2025-09-18 | MR_ITS ---
EXAMINATION: MR brain/brain stem wo con DATE: 09/18/2025 09:52 INDICATION: Word finding difficulty. Cerebrovascular accident. TECHNIQUE: Magnetic resonance imaging (MRI) of the brain and brainstem was performed without intravenous contrast. COMPARISON: None. FINDINGS: There is an old lacunar infarct in right thalamus. There are scattered areas of nonspecific increased T2-weighted signal intensity in the cerebral white matter and fe. There is no intracranial hemorrhage, acute infarction, or abnormal intracranial mass lesion. The ventricles are normal in size. There are likely changes of ocular lens replacement surgeries. There is mucosal thickening in the paranasal sinuses. The mastoid air cells are normal. IMPRESSION: 1. Old lacunar infarct in right thalamus. 2. Moderate nonspecific cerebral white matter disease and pontine disease, which likely represents chronic small vessel ischemic disease. Reviewed, dictated and finalized at location E. S CUTTER IMPRESSION: 1. Old lacunar infarct in right thalamus. 2. Moderate nonspecific cerebral white matter disease and pontine disease, whic h likely represents chronic small vessel ischemic disease.
== END 2025-09-18 08:33 | disposition home or self-care (01) ==
LOC: CHSIMG 08:33
PROVIDERS: PCP Internal Medicine; Visit Provider Internal Medicine
DX: M54.2 Cervicalgia (principal); Z86.73 Personal history of transient ischemic attack (TIA), and cerebral infarction without residual deficits; R90.82 White matter disease, unspecified
CPT/HCPCS: 70551; 72141